=== PATIENT | male | born 2000 | race Hispanic/Latino ===

== ENCOUNTER 2020-06-17 09:04 | Emergency (ER) | payer OTHER | END 2020-06-17 09:31 | disposition home or self-care (01) | LOC: EEVIPCON 09:04 → EDH 09:04 | DX: R19.7 Diarrhea, unspecified (principal); R51 Headache; R05 Cough; Z20.828 Contact with and (suspected) exposure to other viral communicable diseases; Z72.0 Tobacco use | CPT/HCPCS: 36415; 99283; U0003 ==

== ENCOUNTER 2023-11-26 19:10 | Emergency (ER) | payer BC, OTHER ==
[~2023-11-26] VITALS: Ht 177.8 cm; Wt 69.9 kg
[2023-11-26] MEDS ORDERED: IBUPROFEN 800 MG TAB PO ONE (20:30)
[2023-11-26] MEDS ORDERED: IBUPROFEN 400 MG TABLET ONE (20:32)
[2023-11-26] MEDS ORDERED: AMOX1TAB16 PO (22:38)
[2023-11-26] MEDS ORDERED: IBUP-2077 PO (22:38)
[2023-11-26] MEDS ORDERED: ACETAMINOPHEN WITH CODEINE 1 TAB TAB PO ONE (23:00)
[2023-11-27 00:01] VITALS: BP 142/74; PULSE 85; RESP 18; O2SAT 98
[2023-11-27] MEDS ORDERED: AMOX/CLAV 875/125MG TAB PO ONE ×2 (00:04)
== END 2023-11-27 00:12 | disposition home or self-care (01) ==
LOC: EDH 19:10
DX: K12.2 Cellulitis and abscess of mouth (principal)